=== PATIENT | male | born 1970 | race Caucasian/White ===

== ENCOUNTER 2021-06-09 15:53 | Outpatient (REF) | payer BC, SELFPAY ==
[2021-06-09 16:05] LABS: MANUAL DIFF FLAG NO
[2021-06-09 16:33] LABS: Basophils Percent Auto 0.4 % (0-2); Eosinophils Absolute Auto 0.2 X10*3/uL (0.0-0.4); Hematocrit 41.4 % (42.0-52.0); Hemoglobin 14.2 g/dl (14.0-18.0); Imm Gran Abs Auto 0.02 X10*3/uL (0.00-0.03); Imm Gran Pct Auto 0.2 % (0.0-0.4); Lymphocytes Absolute Auto 2.2 X10*3/uL (1.2-4.9); Lymphocytes Percent Auto 27.2 % (20-40); Mean Corpuscular HGB Conc 34.3 g/dl (31.0-36.0); Mean Corpuscular Hemoglobin 29.4 pg (27.0-33.0); Mean Corpuscular Volume 85.7 fL (80.0-98.0); Mean Platelet Volume 8.9 fL (9.4-12.4); Monocytes Absolute Auto 0.6 X10*3/uL (0.1-1.2); Monocytes Percent Auto 7.8 % (2-11); Neutrophils Percent Auto 61.4 % (45-73); Platelet Count 282 X10*3/uL (160-400); Red Blood Count 4.83 X10*6/uL (4.60-5.80); White Blood Count 8.1 X10*3/uL (4.8-10.8)
[2021-06-09 16:53] LABS: Anion Gap 11 (12-20); Carbon Dioxide 27 mmol/L (22-29); Chloride 105 mmol/L (96-108); Potassium 4.2 mmol/L (3.3-5.1); Sodium 139 mmol/L (135-145)
[2021-06-09 17:23] LABS: Carbamazepine Tegretol 7.1 mcg/mL (5.0-12.0)
== END 2021-06-09 15:54 | disposition home or self-care (01) ==
LOC: HO.LAB 15:53
PROVIDERS: PCP Internal Medicine; Visit Provider Psychiatry & Neurology Neurology
DX: G40.909 Epilepsy, unspecified, not intractable, without status epilepticus (principal)
CPT/HCPCS: 36415; 80051; 80156; 85025